=== PATIENT | male | born 1955 | race Caucasian/White ===

== ENCOUNTER → 2024-04-28 | Outpatient (CLI) | payer MEDICARE ==
--- NOTE | 2024-04-28 14:53 | MR ---
EXAMINATION TYPE: MR Prostate wo/w con DATE OF EXAM: 04/28/2024 9:06 AM COMPARISON: None. CLINICAL INDICATION: Male, 68 years old with history of R97.20 ELEVATED PROSTATE SPECIFIC ANTIGEN [PS A]; Elevated PSA. TECHNIQUE: Multi-planar, multi-sequence imaging of the pelvis is performed prior to and following the uncomplicated administration of bolus intravenous gadolinium. CONTRAST: 8 [facility] Interpretive Criteria: PI-RADS v2.1 SERUM PSA: 7-19-24 = 6.01 SURGICAL PATHOLOGY: No data available. FINDINGS: Prostatic dimensions: 6.4 x 6.2 x 5.4 cm. Ellipsoid Volume:112.19 (PSA density=0.05 ng/mL/mL) CENTRAL GLAND (Central and Transition Zones/CZ+TZ): High DWI/low ADC/low T2 signal area on the medial aspect of the apex/mid gland with some arterial enh ancement this is thought to be abutting a BPH nodule. (PI-RADS 5) PERIPHERAL ZONE (PZ): Bilateral linear, indistinct wedgelike areas of low ADC, and low T2 signal, No evidence of masslike a bnormality, or localized perfusional hypervascularity, to further suggest a focus of clinically signi ficant prostate cancer. (PI-RADS 2) SEMINAL VESICLES (SV): Symmetric and unremarkable. PERIPROSTATIC TISSUES: Unremarkable. LYMPH NODES: No enlarged pelvic lymph node. REMAINING PELVIS: Bladder wall is within normal limits given distention. No abnormal free or organized intrapelvic fluid collection. No pathologic bowel dilation or mural thickening. Bilateral fat containing inguinal hernias. OSSEOUS STRUCTURES: No suspicious osseous abnormality. IMPRESSION: 1. PI-RADS 5 lesion right central mid gland/apex measuring 21 x 9 mm 2. Substantial BPH, estimated gland volume 112.19 mL. 3. No suspicious osseous lesion. No lymphadenopathy. No evidence of prostate adenocarcinoma involving the periprostatic tissues. [facility], Workstation: [id number], 04/28/2024 2:51 PM
== END | disposition home or self-care (01) ==
LOC: RADMRIMAIN 08:01
PROVIDERS: ATTEND Internal Medicine
CPT/HCPCS: 72197